=== PATIENT | male | born 2000 | race African-American/Black ===

== ENCOUNTER 2022-04-18 12:22 | Emergency (ER) | payer MEDICAID ==
[~2022-04-18] VITALS: Ht 170.2 cm; Wt 59.0 kg
[2022-04-18 14:17] LABS: HEMATOCRIT. 49.1 % (42.0-52.0); HEMOGLOBIN. 16.5 g/dL (14.0-18.0); MEAN CORPUSCULAR HEMOGLOBIN 32.1 pg (28.0-32.0); MEAN CORPUSCULAR VOLUME 95.6 fL (80.0-94.0); MEAN PLATELET VOLUME 8.4 fl (7.4-10.4); PLATELET 202 x1000/uL (130-400); RED BLOOD CELL COUNT 5.14 mill/uL (4.7-6.1); RED CELL DISTRIBUTION WIDTH 13.2 % (11.6-14.6)
[2022-04-18 14:34] LABS: CHLORIDE 106 mEq/L (98-107)
[2022-04-18 14:41] LABS: ETHANOL BLOOD < 10 mg/dL
[2022-04-18] MEDS ORDERED: IBUPROFEN 600MG TABLET PO ONE (14:45)
[2022-04-18 14:51] VITALS: BP 130/85
[2022-04-18 15:54] LABS: CLARITY URINE CLEAR (CLEAR); COLOR URINE YELLOW (YELLOW); KETONES URINE 3+ (NEGATIVE); LEUKOCYTE ESTERASE URINE NEGATIVE (NEGATIVE); NITRITE URINE NEGATIVE (NEGATIVE); OCCULT BLOOD URINE NEGATIVE (NEGATIVE); PROTEIN URINE TRACE (NEGATIVE); SPECIFIC GRAVITY URINE 1.022 (1.005-1.030); UROBILINOGEN URINE 0.2 E.U./dL (0.2-1.0)
[2022-04-18] MEDS ORDERED: ONDA4TAB50 MT (16:33)
[2022-04-18 19:04] LABS: PLATELET ESTIMATE NORMAL
== END 2022-04-18 16:50 | disposition home or self-care (01) ==
LOC: ER 12:33
DX: F10.129 Alcohol abuse with intoxication, unspecified (principal); Y90.0 Blood alcohol level of less than 20 mg/100 ml; R10.9 Unspecified abdominal pain; R11.10 Vomiting, unspecified; R51.9 Headache, unspecified
CPT/HCPCS: 36415; 80053; 80320; 81003; 82962; 83690; 85025; 99283; Z7610; G0480